=== PATIENT | female | born 1985 | race Two or more races ===

== ENCOUNTER → 2020-08-18 | Outpatient (CLI) | payer OTHER ==
[~2020-08-18] MED LIST: ACYCLOVIR800 MG PO; BENADRYL25 MG PO; KETO10TA2 PO
== END | disposition home or self-care (01) ==
LOC: SONOGRAMA 09:11
PROVIDERS: ATTEND Specialist
DX: R10.31 Right lower quadrant pain (principal); N94.89 Other specified conditions associated with female genital organs and menstrual cycle; N83.02 Follicular cyst of left ovary; D27.1 Benign neoplasm of left ovary

== ENCOUNTER 2021-12-13 18:50 | Emergency (ER) | payer OTHER ==
[~2021-12-13] VITALS: Ht 177.8 cm; Wt 89.4 kg
[2021-12-13] MEDS ORDERED: PEPCID AC20 MG PO (23:19)
== END 2021-12-13 23:38 | disposition home or self-care (01) ==
LOC: ER 18:50
DX: R10.12 Left upper quadrant pain (principal)

== ENCOUNTER 2022-09-25 18:41 | Emergency (ER) | payer OTHER ==
[~2022-09-25] VITALS: Ht 177.8 cm; Wt 92.1 kg
[~2022-09-25 18:41] MED LIST changes: +PEPCID AC20 MG PO
== END 2022-09-25 22:39 | disposition home or self-care (01) ==
LOC: ER 18:41
DX: R10.9 Unspecified abdominal pain (principal); N83.292 Other ovarian cyst, left side; N83.291 Other ovarian cyst, right side

== ENCOUNTER 2022-10-13 17:49 | Emergency (ER) | payer OTHER ==
[~2022-10-13] VITALS: Ht 152.4 cm; Wt 92.1 kg
[2022-10-13] MEDS ORDERED: ZITHROMAX500 MG PO (22:12)
== END 2022-10-13 22:17 | disposition home or self-care (01) ==
LOC: ER 17:49
DX: J03.90 Acute tonsillitis, unspecified (principal)

== ENCOUNTER 2023-01-09 14:28 | Emergency (ER) | payer OTHER ==
[~2023-01-09] VITALS: Ht 177.8 cm; Wt 93.9 kg
[~2023-01-09 14:28] MED LIST changes: +ZITHROMAX500 MG PO
[2023-01-09] MEDS ORDERED: MEDROLPACK PO (15:18)
[2023-01-09] MEDS ORDERED: DICLOFENAC SODI75 MG PO (15:18)
== END 2023-01-09 15:52 | disposition home or self-care (01) ==
LOC: ER 14:28
DX: M54.89 Other dorsalgia (principal); M79.602 Pain in left arm

== ENCOUNTER → 2023-05-12 | Emergency (ER) | payer OTHER ==
[~2023-05-12] VITALS: Ht 177.8 cm; Wt 96.6 kg
[~2023-05-12] MED LIST changes: +DICLOFENAC SODI75 MG PO; +DOLOGEN 325-11 EACH PO; +MEDROLPACK PO
== END | disposition home or self-care (01) ==
LOC: ER 23:11
DX: L03.90 Cellulitis, unspecified (principal)

== ENCOUNTER 2023-05-13 20:31 | Emergency (ER) | payer OTHER ==
[~2023-05-13] VITALS: Ht 177.8 cm; Wt 96.2 kg
== END 2023-05-14 01:39 | disposition home or self-care (01) ==
LOC: ER 20:31
DX: L03.90 Cellulitis, unspecified (principal)

== ENCOUNTER 2023-06-12 12:36 | Emergency (ER) | payer OTHER ==
[~2023-06-12] VITALS: Ht 177.8 cm; Wt 94.8 kg
[2023-06-12 14:55] LABS: HEMOGLOBIN 12.2 g/dL (12.0-15.00); MEAN CELL VOLUME 93.3 fL (80.00-100.00); MEAN CORPUSCULAR HEMOGLOBIN 31.6 pg (27.00-32.0); MEAN CORPUSCULAR HGB CONC 33.9 g/dl (32.0-36.0); PLATELET COUNT 359 K/uL (150-450); RED BLOOD COUNT 3.86 M/uL (4.00-6.00)
[2023-06-12] MEDS ORDERED: ZYRTEC10 M3 PO (15:58)
[2023-06-12] MEDS ORDERED: ZITHROMAX500 MG PO (15:58)
[2023-06-12] MEDS ORDERED: DOLOGEN CAPLET1 EACH PO (15:58)
[2023-06-12] MEDS ORDERED: ALBUTEROL2.5 MG/3 M IH (15:58)
[2023-06-12] MEDS ORDERED: TUSNEL LIQUID178 ML PO (15:58)
== END 2023-06-12 16:09 | disposition home or self-care (01) ==
LOC: ER 12:37
PROVIDERS: General Practice
DX: J06.9 Acute upper respiratory infection, unspecified (principal); Z20.822 Contact with and (suspected) exposure to COVID-19

== ENCOUNTER 2023-07-30 07:59 | Emergency (ER) | payer OTHER ==
[~2023-07-30] VITALS: Ht 177.8 cm; Wt 95.3 kg
[~2023-07-30 07:59] MED LIST changes: +ALBUTEROL2.5 MG/3 M IH; +DOLOGEN CAPLET1 EACH PO; +TUSNEL LIQUID178 ML PO; +ZYRTEC10 M3 PO
[2023-07-30] MEDS ORDERED: METHYLPREDNISOLONE SOD SUCC 125 MG VIAL IV ONE (09:45)
[2023-07-30] MEDS ORDERED: FAMOtidine 10 MG/ML (4ML VIAL) IV ONE (09:45)
[2023-07-30] MEDS ORDERED: DIPHENHYDRAMINE HCL 50 MG/ML VIAL 1ML IV ONE (09:45)
[2023-07-30 10:24] LABS: HEMATOCRIT 36.7 % (36.0-45.00); HEMOGLOBIN 12.4 g/dL (12.0-15.00); MEAN CELL VOLUME 92.4 fL (80.00-100.00); MEAN CORPUSCULAR HEMOGLOBIN 31.3 pg (27.00-32.0); MEAN CORPUSCULAR HGB CONC 33.9 g/dl (32.0-36.0); PLATELET COUNT 406 K/uL (150-450); RED BLOOD COUNT 3.97 M/uL (4.00-6.00); RED CELL DISTRIBUTION WIDTH 13.6 % (11.5-14.5)
[2023-07-30 10:36] LABS: CALCIUM 9.2 mg/dL (8.5-10.1); CREATININE SERUM 0.78 mg/dL (0.55-1.02); GFR 83.57; POTASSIUM 3.87 mEq/L (3.5-5.1)
[2023-07-30] MEDS ORDERED: VERDESO100 GM TOP (10:53)
[2023-07-30] MEDS ORDERED: CLARITIN10 M1 PO (10:53)
[2023-07-30] MEDS ORDERED: DESONIDE15 GM (11:00)
[2023-07-30] MEDS ORDERED: DESONIDE15 GM TOP (11:03)
== END 2023-07-30 11:49 | disposition home or self-care (01) ==
LOC: ER 07:59
PROVIDERS: General Practice
DX: L30.9 Dermatitis, unspecified (principal); R21 Rash and other nonspecific skin eruption

== ENCOUNTER → 2023-08-06 14:45 | Outpatient (CLI) | payer OTHER ==
[~2023-08-06 14:45] MED LIST changes: +CLARITIN10 M1 PO; +DESONIDE15 GM; +DESONIDE15 GM TOP; +FAMOTIDINE40 MG PO; +VERDESO100 GM TOP
== END | disposition home or self-care (01) ==
LOC: LAB 14:45
DX: A92.0 Chikungunya virus disease (principal); A90 Dengue fever [classical dengue]

== ENCOUNTER 2023-08-08 02:58 | Emergency (ER) | payer OTHER ==
[~2023-08-08] VITALS: Ht 177.8 cm; Wt 94.3 kg
[~2023-08-08 02:58] MED LIST changes: -FAMOTIDINE40 MG PO
[2023-08-08] MEDS ORDERED: METHYLPREDNISOLONE SOD SUCC 125 MG VIAL IV STA (05:50)
[2023-08-08] MEDS ORDERED: DIPHENHYDRAMINE HCL 50 MG/ML VIAL 1ML IV STA (05:51)
[2023-08-08] MEDS ORDERED: FAMOTIDINE/PF 20 MG/2 ML VIAL IV PUSH STA (05:51)
[2023-08-08] MEDS ORDERED: EPINEPHRINE HCL/PF 1 MG/ML AMPUL SUBCUTANEO STA (05:51)
[2023-08-08] MEDS ORDERED: BENADRYL25 MG PO (07:41)
[2023-08-08] MEDS ORDERED: FAMOTIDINE40 MG PO (07:41)
== END 2023-08-08 07:56 ==
LOC: ER 02:58
DX: R21 Rash and other nonspecific skin eruption (principal)

== ENCOUNTER 2023-12-10 22:32 | Emergency (ER) | payer OTHER ==
[~2023-12-10] VITALS: Ht 177.8 cm; Wt 95.3 kg
[~2023-12-10 22:32] MED LIST changes: +FAMOTIDINE40 MG PO
[2023-12-10] MEDS ORDERED: KETOROLAC TROMETHAMINE 30 MG VIAL IM STA (23:22)
[2023-12-10] MEDS ORDERED: AMOX-CLAV 875-1 EAC1 PO (23:26)
[2023-12-10] MEDS ORDERED: KETOROLAC TROMETHAMINE 30 MG VIAL ONE (23:27)
== END 2023-12-10 23:32 | disposition home or self-care (01) ==
LOC: ER 22:33
DX: U07.1 COVID-19 (principal); J32.9 Chronic sinusitis, unspecified

== ENCOUNTER 2024-02-10 18:44 | Emergency (ER) | payer OTHER ==
[~2024-02-10] VITALS: Ht 177.8 cm; Wt 93.4 kg
[~2024-02-10 18:44] MED LIST changes: +AMOX-CLAV 875-1 EAC1 PO
[2024-02-10] MEDS ORDERED: GUAIFENESIN 200 MG/10 ML BLIST.PACK PO ONE (20:09)
[2024-02-10] MEDS ORDERED: KETOROLAC TROMETHAMINE 30 MG VIAL ONE (20:09)
[2024-02-10] MEDS ORDERED: KETOROLAC TROMETHAMINE 60 MG VIAL IM ONE (20:15)
[2024-02-10] MEDS ORDERED: GUAIFENESIN/DEXTROMETHORPHAN 10ML BLIST.PACK PO ONE (20:15)
[2024-02-10 20:45] LABS: HEMATOCRIT 35.4 % (36.0-45.00); HEMOGLOBIN 12.2 g/dL (12.0-15.00); MEAN CELL VOLUME 93.8 fL (80.00-100.00); MEAN CORPUSCULAR HEMOGLOBIN 32.2 pg (27.00-32.0); MEAN CORPUSCULAR HGB CONC 34.3 g/dl (32.0-36.0); PLATELET COUNT 426 K/uL (150-450); RED BLOOD COUNT 3.77 M/uL (4.00-6.00); RED CELL DISTRIBUTION WIDTH 13.2 % (11.5-14.5)
[2024-02-10] MEDS ORDERED: AMOX-CLAV 875-1 EACH PO (22:16)
[2024-02-10] MEDS ORDERED: BENZONATATE150 MG PO (22:16)
[2024-02-10] MEDS ORDERED: MEDROLPACK PO (22:16)
[2024-02-10] MEDS ORDERED: TUSSIN DM LIQU118 ML PO (22:16)
[2024-02-10] MEDS ORDERED: CEFTRIAXONE SODIUM 1,000 MG VIAL ONE (22:30)
[2024-02-10] MEDS ORDERED: METHYLPREDNISOLONE SOD SUCC 125 MG VIAL IM ONE (22:30)
[2024-02-10] MEDS ORDERED: METHYLPREDNISOLONE SOD SUCC 125 MG VIAL ONE (22:30)
[2024-02-10] MEDS ORDERED: CEFTRIAXONE SODIUM 1,000 MG VIAL IM ONE (22:30)
== END 2024-02-10 22:35 | disposition home or self-care (01) ==
LOC: ER 18:46
PROVIDERS: Nurse Practitioner Family
DX: J32.0 Chronic maxillary sinusitis (principal); J06.9 Acute upper respiratory infection, unspecified; Z20.822 Contact with and (suspected) exposure to COVID-19

== ENCOUNTER 2024-04-03 14:41 | Inpatient (IN) | payer OTHER ==
[~2024-04-03] VITALS: Ht 177.8 cm; Wt 95.3 kg
[~2024-04-03 14:41] MED LIST changes: +AMOX-CLAV 875-1 EACH PO; +BENZONATATE150 MG PO; +TUSSIN DM LIQU118 ML PO
[2024-04-03] MEDS ORDERED: 0.9 % SODIUM CHLORIDE 500 ML IV ONE (16:30)
[2024-04-03] MEDS ORDERED: ACETAMINOPHEN 500 MG GEL..CAP PO ONE (16:30)
[2024-04-03 16:57] LABS: HEMATOCRIT 35.5 % (36.0-45.00); HEMOGLOBIN 12.1 g/dL (12.0-15.00); MEAN CELL VOLUME 91.5 fL (80.00-100.00); MEAN CORPUSCULAR HEMOGLOBIN 31.2 pg (27.00-32.0); MEAN CORPUSCULAR HGB CONC 34.1 g/dl (32.0-36.0); PLATELET COUNT 384 K/uL (150-450); RED BLOOD COUNT 3.88 M/uL (4.00-6.00); RED CELL DISTRIBUTION WIDTH 12.8 % (11.5-14.5)
[2024-04-03 17:16] LABS: ALBUMIN 3.8 gm/dL (3.4-5.0); BILIRUBIN TOTAL 0.24 mg/dL (0.3-1.2); CALCIUM 9.2 mg/dL (8.5-10.1); CREATININE SERUM 0.75 mg/dL (0.55-1.02); GFR 87.43; POTASSIUM 4.05 mEq/L (3.5-5.1); TOTAL PROTEIN 7.8 gm/dL (6.4-8.2)
[2024-04-03] MEDS ORDERED: KETOROLAC TROMETHAMINE 30 MG VIAL IV ONE (18:45)
[2024-04-03 18:59] LABS: URINE APPEARANCE Clear; URINE BILIRRUBIN Negative (NEGATIVE); URINE BLOOD Negative; URINE COLOR Yellow; URINE GLUCOSE Negative (NEGATIVE); URINE KETONE Negative (NEGATIVE); URINE LEUKOCYTE Small; URINE NITRATE Negative; URINE PROTEIN Negative (NEGATIVE); URINE UROBILINOGEN 0.2 E.U./dl
[2024-04-03 19:05] LABS: URINE BACTERIA 1016.7 uL (0.0-1933); URINE EPITHELIAL CELLS 28.1 uL (0.0-38.8); URINE RBC 11.7 uL (0.0-20.8)
[2024-04-03] MEDS ORDERED: ONDANSETRON HCL 2 MG/ML VIAL IV ONE (21:30)
[2024-04-03 21:33] LABS: HEMATOCRIT 33.1 % (36.0-45.00); HEMOGLOBIN 11.5 g/dL (12.0-15.00); MEAN CELL VOLUME 91.7 fL (80.00-100.00); MEAN CORPUSCULAR HEMOGLOBIN 31.8 pg (27.00-32.0); MEAN CORPUSCULAR HGB CONC 34.6 g/dl (32.0-36.0); PLATELET COUNT 327 K/uL (150-450); RED BLOOD COUNT 3.61 M/uL (4.00-6.00); RED CELL DISTRIBUTION WIDTH 12.9 % (11.5-14.5)
[2024-04-03] MEDS ORDERED: PIPERACILLIN/TAZOBACTAM SODIUM 3.375 GM VIAL IV ONE (22:30)
[2024-04-03] MEDS ORDERED: 0.9 % SODIUM CHLORIDE 1,000 ML IV SCH (23:00)
[2024-04-03] MEDS ORDERED: KETOROLAC TROMETHAMINE 15 MG VIAL IU ONE (23:15)
[2024-04-03] MEDS ORDERED: HYOSCYAMINE SULFATE 0.125 MG TAB.SUBL PO ONE (23:15)
[2024-04-03] MEDS ORDERED: ACETAMINOPHEN 500 MG GEL..CAP PO PRN (23:15)
[2024-04-03] MEDS ORDERED: ONDANSETRON HCL 4 MG in 0.9 % SODIUM CHLORIDE 50 ML IV PRN (23:15)
[2024-04-03] MEDS ORDERED: MEPERIDINE HCL/PF 25 MG/ML VIAL IM PRN (23:15)
[2024-04-03 23:50] VITALS: BP 140/76
[2024-04-04] MEDS ORDERED: PIPERACILLIN/TAZOBACTAM SODIUM 3.375 GM in DEXTROSE 5 % IN WATER 100 ML IV SCH
[2024-04-04 00:20] LABS: INR 1.05; PARTIAL THROMBOPLASTIN TIME 31.8 SECONDS (22.0-34.0); PROTHROMBIN TIME 11.4 SECONDS (9.0-11.5)
[2024-04-04 01:49] VITALS: BP 143/87; O2SAT 98
[2024-04-04 04:11] LABS: FECAL LEUKOCYTES POSITIVE (NEGATIVE)
[2024-04-04] MEDS ORDERED: FAMOTIDINE/PF 20 MG in 0.9 % SODIUM CHLORIDE 8 ML IV PUSH SCH (05:00)
[2024-04-04 07:30] VITALS: BP 119/82; O2SAT 97
[2024-04-04] MEDS ORDERED: LACTOBACILLUS ACIDOPHILUS 1 CAP CAP PO SCH (09:00)
[2024-04-04 16:21] VITALS: BP 113/55; BP 126/82; O2SAT 100; O2SAT 90
[2024-04-04 23:54] VITALS: BP 139/78; O2SAT 98
[2024-04-05 07:33] VITALS: BP 142/85; O2SAT 97
[2024-04-05] MEDS ORDERED: LORATADINE 10 MG TABLET PO SCH (13:30)
[2024-04-05 16:52] VITALS: BP 125/84; O2SAT 100
[2024-04-05] MEDS ORDERED: SODIUM CHLORIDE FOR INHALATION 1 VIAL.NEB IH SCH (21:00)
[2024-04-06 00:09] VITALS: BP 109/64; O2SAT 98
[2024-04-06 07:58] LABS: HEMATOCRIT 29.7 % (36.0-45.00); HEMOGLOBIN 10.4 g/dL (12.0-15.00); MEAN CELL VOLUME 92.2 fL (80.00-100.00); MEAN CORPUSCULAR HEMOGLOBIN 32.4 pg (27.00-32.0); MEAN CORPUSCULAR HGB CONC 35.2 g/dl (32.0-36.0); PLATELET COUNT 314 K/uL (150-450); RED BLOOD COUNT 3.22 M/uL (4.00-6.00); RED CELL DISTRIBUTION WIDTH 12.5 % (11.5-14.5)
[2024-04-06 08:22] VITALS: BP 119/71; O2SAT 98
[2024-04-06 09:02] LABS: ALBUMIN 3.2 gm/dL (3.4-5.0); BILIRUBIN TOTAL 0.36 mg/dL (0.3-1.2); CALCIUM 8.1 mg/dL (8.5-10.1); CREATININE SERUM 0.77 mg/dL (0.55-1.02); GFR 84.82; GLOBULINA 3.1 G/DL (2.4-3.5); POTASSIUM 3.6 mEq/L (3.5-5.1); TOTAL PROTEIN 6.3 gm/dL (6.4-8.2)
== END 2024-04-06 18:19 | disposition home or self-care (01) | DRG 690 ==
LOC: ER 14:42 → SEC-K 23:50 → SURG 23:50
PROVIDERS: General Practice; Nurse Practitioner Family; Student in an Organized Health Care Education/Training Program; ADMIT Internal Medicine; ATTEND Internal Medicine
PROC: BW21ZZZ Computerized Tomography (CT Scan) of Abdomen and Pelvis (ICD-10-PCS; principal; 2024-04-03)
DX: N39.0 Urinary tract infection, site not specified (principal)

== ENCOUNTER 2025-01-18 18:17 | Emergency (ER) | payer OTHER ==
[~2025-01-18] VITALS: Ht 177.8 cm; Wt 90.3 kg
== END 2025-01-18 20:41 | disposition home or self-care (01) ==
LOC: ER 18:17
DX: R03.0 Elevated blood-pressure reading, without diagnosis of hypertension (principal); R51.9 Headache, unspecified

== ENCOUNTER 2025-01-20 21:49 | Emergency (ER) | payer OTHER ==
[~2025-01-20] VITALS: Ht 177.8 cm; Wt 90.3 kg
[2025-01-20] MEDS ORDERED: FAMOtidine 10 MG/ML (4ML VIAL) IV ONE (23:15)
[2025-01-20] MEDS ORDERED: CEFTRIAXONE SODIUM 1,000 MG VIAL IV ONE (23:15)
[2025-01-20] MEDS ORDERED: KETOROLAC TROMETHAMINE 30 MG VIAL IV ONE (23:15)
[2025-01-20] MEDS ORDERED: CEFTRIAXONE SODIUM 1,000 MG VIAL ONE (23:21)
[2025-01-20] MEDS ORDERED: KETOROLAC TROMETHAMINE 30 MG VIAL ONE (23:21)
[2025-01-20] MEDS ORDERED: FAMOTIDINE/PF 20 MG/2 ML VIAL ONE (23:22)
[2025-01-20 23:29] LABS: BASO % 0.4 % (0.1-1.2); EOS # 0.34 (0.04-0.54); EOS % 2.7 % (0.7-7.0); LYMPH # 3.01 (1.18-3.74); LYMPH % 24.1 % (19.3-53.1); MEAN PLATELET VOLUME 9.00 fl (9.4-12.4); MONO # 0.70 (0.24-0.82); MONO % 5.6 % (4.7-12.5); NEUT # 8.37 (1.56-6.13); NEUT % 66.9 % (34.0-71.1); RED CELL DISTRIBUTION WIDTH 12.5 % (11.6-14.4)
[2025-01-20 23:42] LABS: URINE APPEARANCE Clear; URINE BILIRRUBIN Negative (NEGATIVE); URINE BLOOD Negative; URINE COLOR Yellow; URINE GLUCOSE Negative (NEGATIVE); URINE KETONE Negative (NEGATIVE); URINE LEUKOCYTE Negative; URINE NITRATE Negative; URINE PROTEIN Negative (NEGATIVE); URINE UROBILINOGEN 0.2 E.U./dl
[2025-01-20 23:43] LABS: URINE BACTERIA 484.8 uL (0.0-1933); URINE EPITHELIAL CELLS 39.9 uL (0.0-38.8); URINE RBC 3.0 uL (0.0-20.8); URINE WBC 3.9 uL (0.0-23.2)
[2025-01-20 23:44] LABS: URINE CAST 0.00 uL (0.0-1.40)
[2025-01-20 23:55] LABS: ALT/SGPT 23 U/L (12-78); AST/SGOT 20 U/L (15-37); BILIRUBIN TOTAL 0.18 mg/dL (0.3-1.2); BUN CREA RATIO 15 (7.0-25.0); CREATININE SERUM 0.88 mg/dL (0.55-1.02); GFR 72.30; GLOBULINA 3.8 G/DL (2.4-3.5); GLUCOSE FASTING 92 mg/dL (65-100); OSMOLALITY SERUM 277 MOSM/KG (275-295)
[2025-01-21 00:11] LABS: HCG QUANTITATIVE < 1 mUI/mL (1-3)
[2025-01-21] MEDS ORDERED: CEPHALEXIN500 MG PO (02:23)
[2025-01-21] MEDS ORDERED: KETO10TA2 PO (02:23)
== END 2025-01-21 02:29 ==
LOC: ER 22:18
PROVIDERS: General Practice
DX: N83.209 Unspecified ovarian cyst, unspecified side (principal); N39.0 Urinary tract infection, site not specified; R10.9 Unspecified abdominal pain

== ENCOUNTER 2025-03-01 09:35 | Emergency (ER) | payer OTHER ==
[~2025-03-01] VITALS: Ht 177.8 cm; Wt 88.5 kg
[~2025-03-01 09:35] MED LIST changes: +CEPHALEXIN500 MG PO
[2025-03-01] MEDS ORDERED: KETOROLAC TROMETHAMINE 60 MG VIAL IM ONE (11:00)
[2025-03-01] MEDS ORDERED: ORPHENADRINE CITRATE 30 MG/ML AMPUL IM ONE (11:00)
== END 2025-03-01 12:16 ==
LOC: ER 09:35
DX: R07.89 Other chest pain (principal)
CPT/HCPCS: 93005; 96372; 99283; J1885; J2360